=== PATIENT | male | born 1970 | race Hispanic/Latino ===

== ENCOUNTER → 2019-11-17 | Outpatient (CLI) | payer OTHER ==
--- NOTE | 2019-11-17 08:56 | REP ---
Left wrist series: Four views. History: Lower back pain and left wrist pain. Findings: Four views of the left wrist demonstrate normal bones, joints, and soft tissues. No fracture or subluxation is seen. There is no evidence of arthropathy. Impression: Unremarkable radiographs of the left wrist. Electronically Signed by Bala Bejarano MD 11/17/2019 08:48 A
--- NOTE | 2019-11-17 09:15 | REP ---
LUMBAR SPINE SERIES: FIVE VIEWS. HISTORY: Low back pain and left wrist pain. FINDINGS: Lumbar vertebral body heights are preserved. There is some straightening. Alignment is normal. Pedicles and posterior elements are intact. There is no evidence of spondylolysis or spondylolisthesis. There is degenerative disc narrowing, sclerosis and spurring at the L5-S1 level. Other disc spaces are maintained. Psoas margins are symmetric. Sacrum and SI joints are intact. Bowel gas pattern is unremarkable. Impression: Degenerative disc disease at L5-S1. Straightening. Otherwise unremarkable lumbar spine radiographs. Electronically Signed by Bala Bejarano MD 11/17/2019 09:21 A
== END ==
LOC: M RAD 08:22
PROVIDERS: ATTEND Surgery
DX: M54.5 Low back pain (principal); M25.532 Pain in left wrist